=== PATIENT | male | born 1995 | race Two or more races ===

== ENCOUNTER 2020-03-31 17:15 | Emergency (ER) | payer SELFPAY ==
[~2020-03-31] VITALS: Ht 177.8 cm; Wt 95.3 kg
[2020-03-31 20:30] VITALS: BP 139/90
[2020-03-31] MEDS ORDERED: TETANUS-DIPTH-ACEL PERTUSSIS 0.5ML SYR Tdap IM ONE (20:30)
[2020-03-31] MEDS ORDERED: LIDOCAINE 1% HCL (LOCAL ANESTH.) INJ 20ML MDV IJ ONE (20:30)
[2020-03-31] MEDS ORDERED: KETOROLAC TROMETH 60MG/2ML VIAL IM ONE (20:30)
[2020-03-31] MEDS ORDERED: cefTRIAXone SOD 1,000 MG VL IM ONE (21:15)
[2020-03-31] MEDS ORDERED: NEOMYCIN-BACITRACIN-POLYM 15GM TOP OINT TOP SCH (21:45)
== END 2020-03-31 21:46 | disposition home or self-care (01) ==
LOC: ER 17:15
DX: S67.195A Crushing injury of left ring finger, initial encounter (principal); S62.635A Displaced fracture of distal phalanx of left ring finger, initial encounter for closed fracture; S61.315A Laceration without foreign body of left ring finger with damage to nail, initial encounter; Z90.49 Acquired absence of other specified parts of digestive tract; W23.0XXA Caught, crushed, jammed, or pinched between moving objects, initial encounter; Y93.89 Activity, other specified; Y92.89 Other specified places as the place of occurrence of the external cause; Y99.8 Other external cause status
CPT/HCPCS: 29130; 73130; 90471; 90715; 96372; 99284; J0696; J1885